=== PATIENT | female | born 2000 | race Caucasian/White ===

== ENCOUNTER 2024-09-09 20:58 | Emergency (ER) | payer MEDICAID, SELFPAY ==
[2024-09-09 21:33] VITALS: BP 135/80; PULSE 89; RESP 18; TEMP 36.4; O2SAT 99
--- NOTE | 2024-09-09 21:36 | EDNOTE_ITS ---
<Statement entered by Tesha Rodriguez MD - 09/16/24 17:50> As co-signing physician, I was present and available for consult prn. I concur with the plan and care as documented by the midlevel provider. 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 Patient reports recently had tetanus vaccine in May. Mode of arrival: ambulatory Limitations: no limitations Related Data Previous Rx's ?Medication ?Instructions ?Recorded hydrocodone 5 mg-acetaminophen 325 1 tab PO BID PRN pain #6 tabs 10/08/23 mg tablet ibuprofen 600 mg tablet 600 mg PO Q6H #30 tabs 10/08/23 Allergies Allergy/AdvReac Type Severity Reaction Status Date / Time No Known Allergies Allergy Verified 07/22/23 18:01 Review of Systems Review of Systems Systems Reviewed: All systems reviewed, normal except as documented Constitutional Constitutional: Reports system reviewed and no additional complaints, except as documented, Denies body ache(s), Denies chills and Denies fever(s) Eyes Eyes: Reports system reviewed and no additional complaints, except as documented and Denies change in vision ENT Ears, Nose, Mouth, and Throat: Reports system reviewed and no additional complaints, except as documented, Denies disequilibrium, Denies dizziness, Denies sore throat and Denies vertigo Cardiovascular Cardiovascular: Reports system reviewed and no additional complaints, except as documented, Denies chest pain and Denies dyspnea Respiratory Respiratory: Reports system reviewed and no additional complaints, except as documented, Denies chest congestion, Denies cough and Denies dyspnea Gastrointestinal Gastrointestinal: Reports system reviewed and no additional complaints, except as documented, Denies abdominal pain, Denies nausea and Denies vomiting Musculoskeletal Musculoskeletal: Reports system reviewed and no additional complaints, except as documented, Denies abnormal gait and Denies arthralgias Integumentary/Breasts Skin/Breast: Reports system reviewed and no additional complaints, except as documented, Denies erythema, Denies rash and Reports wounds (Laceration) Neurologic Neurologic: Reports system reviewed and no additional complaints, except as documented, Denies abnormal gait, Denies disequilibrium, Denies dizziness and Denies vertigo Past Medical History Past Medical History CARDIAC: Negative Cardiac Disorders or Congestive Heart Failure RESPIRATORY: Positive Asthma; Negative Chronic Obstructive Pulmonary Disease (COPD) GENITOURINARY: Negative Renal Disease ENDOCRINE: Negative Diabetes Mellitus Type 1 or Diabetes Mellitus Type 2 HEMATOLOGIC: Negative Sickle Cell Disease PSYCHO/SOCIAL: Positive Depression and Self-Mutilation Social History SMOKING STATUS: Current some day smoker ED Exam General Limitations: Present no limitations General appearance: Present alert and in no apparent distress Head Head exam: Present atraumatic Eye Eye exam: Present normal appearance, PERRL and EOMI ENT ENT exam: Present normal exam, normal oropharynx and mucous membranes moist Neck Neck exam: Present normal inspection, full ROM and trachea midline Chest Chest inspection: Present normal inspection and symmetric chest wall rise Respiratory Respiratory exam: Present normal lung sounds bilaterally Cardiovascular Cardiovascular exam: Present regular rate, normal rhythm and normal heart sounds Abdominal Exam Abdominal exam: Present soft and normal bowel sounds Extremities Exam Extremities exam: Present normal inspection and full ROM Expanded Upper Extremity Exam Hand L/R front image: 2 1. laceration (Small approximate 1 cm linear laceration) Back Exam Back exam: Present normal inspection and full ROM Neurological Exam Neurological exam: Present alert, oriented X3 and CN II-XII intact Psychiatric Psychiatric exam: Present normal affect and normal mood Skin Skin exam: Present warm, dry and normal color Course Quality Measures none Orders Category Date Time Status Set Up Suture Tray STAT Care 09/09/24 21:36 Active Wound Care [Wound Care] NOW Care 09/09/24 21:36 Active Lidocaine 1% 20 ml [Xylocaine 1% 20 ML] Med 09/09/24 21:36 Discontinued 20 ml INFL X1 ONE Vital Signs Vital signs: Vital Signs Temperature 97.6 F 09/09/24 21:33 Pulse Rate 89 09/09/24 21:33 Respiratory Rate 18 09/09/24 21:33 Blood Pressure 135/80 H 09/09/24 21:33 Pulse Oximetry (%) 99 09/09/24 21:33 Oxygen Delivery Method Room Air 09/09/24 21:33 99% room air within normal limits Procedures -ED Laceration Laceration 1: Site: hand Side (If applicable): right Size (cm): 1 Description: linear Depth: simple, single layer Local Anesthetic: lidocaine 1% Amount of anesthesia used (mL): 1 Pre-repair: wound explored and irrigated extensively Skin layer closed with: nylon Size (cm): 5-0 Number of sutures: 3 Technique: simple, interrupted Wound / Laceration MDM Narrative MDM Narrative:: 24-year-old female presents emergency department complaining of laceration to right tip of third digit that occurred while using 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 Patient reports recently had tetanus vaccine in May. Right third digit cleansed with normal saline and Betadine. Wound approximated with 3 simple interrupted sutures using 5-0 Ethilon and 1 mL of 1% lidocaine. Patient tolerated well. Patient affected digit is neurovascularly intact. Discharged and instructed to return to emergency department follow-up with primary care provider in 7 to 10 days for suture removal. Patient data External records reviewed:: [facility] previous records Clinical information provided by:: patient Social determinants that could affect healthcare access:: none Patient has the following chronic illnesses:: N/A How is presenting disease/condition affected by chronic disease/condition?: no chronic disease Evaluation data The following diagnostics were reviewed and interpreted by me:: other (specify) (N/A) Lab and/or radiology exams considered but not ordered:: N/A Interpretation Summary: N/A Medications / Prescriptions Medications or Prescriptions considered but not ordered:: Ordered Medication administrations:: Medication Administration History Discontinued Medications Lidocaine HCl (Lidocaine Hcl 1% 20 Ml Vial) 20 ml INFL X1 ONE Stop: 09/09/24 21:37 Last Admin: 09/09/24 21:48 Dose: 20 ml Documented By: Given Consultations Consultation(s) initiated? (list below): No Diagnosis Wound Differential Diagnosis: laceration Most likely diagnosis given after review of the tests above:: Laceration of finger Admission Indicated Admission indicated?: not indicated Admission Request Was there a request for admission?: No Disposition Plan Disposition Plan: Discharge Discharge Attestation Discharge Attestation: The patient and all family members were given an opportunity to ask questions and understood the discharge instructions. Discharge instructions specifically effects, indications for sooner follow up or return to the emergency department, and the expected course of current diagnosis. Patient condition: Stable Discharge Plan Plan Patient Disposition: HOME (Self Care) Disposition Comment: Stable Prescriptions/Referrals Prescriptions/Med Rec: No Action hydrocodone-acetaminophen 5-325 mg tablet 1 tab PO BID MDD 10 PRN (Reason: pain) Qty: 6 0RF ibuprofen 600 mg tablet 600 mg PO Q6H Qty: 30 0RF Problem List Clinical Impression: Finger laceration Patient/Caregiver Discharge Instructions Discharge Activity: activity as tolerated Education Materials: ED Laceration: All Closures Additional Instructions: Keep dressing for the first 24 hours until no more bleeding. May wash with warm water and soap. Keep clean and dry and open to air after 24 hours. Return to emergency department or primary provider's office in 7 to 10 days for suture removal. Return to emergency department for any signs of infection or worsening symptoms Print Language: Cambodian Stand Alone Forms: [employer]ena Award Info., Work/School Release, Patient Portal Info Letter PA/POSTMASTER Supervising Physician PA/POSTMASTER Supervising Physician: Dr. Rodriguez
[2024-09-09] MEDS: LIDOCAINE HCL 1% 20 ML VIAL INFL (21:48)
== END 2024-09-09 23:42 | disposition home or self-care (01) ==
LOC: SERX 23:21
PROVIDERS: Emergency Provider Emergency Medicine
DX: S61.212A Laceration without foreign body of right middle finger without damage to nail, initial encounter (principal); W29.0XXA Contact with powered kitchen appliance, initial encounter; Y93.G9 Activity, other involving cooking and grilling
CPT/HCPCS: 12001; 99283; J3490

== ENCOUNTER 2024-11-02 22:06 | Emergency (ER) | payer MEDICAID, SELFPAY ==
[2024-11-02 22:07] VITALS: BMI 25.6
[2024-11-02 22:42] VITALS: BP 113/68; PULSE 79; RESP 18; TEMP 36.8; O2SAT 98
--- NOTE | 2024-11-02 22:46 | PD.EDRME ---
Rapid Medical Screening Exam RME Arrival date/time: 11/02/24 22:06 24 yo f present to ED for c/o of flu like sx for 2 days I have greeted and performed a focused initial assessment of this patient. A comprehensive ED assessment and evaluation of the patient, analysis of all test results, and completion of the medical decision making process will be conducted by additional ED providers. Chief Complaint: Flu Like Symptoms Time Seen by Provider: 11/02/24 22:08 Vital signs: Vital Signs Temperature 98.2 F 11/02/24 22:42 Pulse Rate 79 11/02/24 22:42 Respiratory Rate 18 11/02/24 22:42 Blood Pressure 113/68 11/02/24 22:42 Pulse Oximetry (%) 98 11/02/24 22:42 Oxygen Delivery Method Room Air 11/02/24 22:42
[2024-11-02] MEDS: KETOROLAC INJ 60 MG/2 ML VIAL 30 MG IM (22:53)
[2024-11-02] MEDS: ONDANSETRON INJ 2 MG/ML INJ 2 ML 4 MG IM (22:54)
[2024-11-02 23:23] LABS: Basophils # (Auto) 0.1 Thou/mm3 (0.0-0.2); Basophils % (Auto) 1 % (0-2.5); Eosinophils % (Auto) 1 % (0-10); Hematocrit 43.2 % (36.0-46.0); Hemoglobin 14.9 g/dL (12.0-16.0); Immature Granulocytes % (Auto) 0 % (0-0); Immature Granulocytes Auto 0.01 Thou/mm3 (0.00-0.00); Lymphocytes # (Auto) 0.2 Thou/mm3 (1.0-4.8); Lymphocytes % (Auto) 4 % (10-50); Mean Corpuscular HGB Conc 34.5 g/dl (31.0-37.0); Mean Corpuscular Hemoglobin 30.8 pg (25.0-35.0); Mean Corpuscular Volume 89 fL (80-100); Monocytes # (Auto) 0.5 Thou/mm3 (0.0-0.8); Monocytes % (Auto) 10 % (0-12); Neutrophils # (Auto) 3.7 Thou/mm3 (1.8-7.7); Neutrophils % (Auto) 84 % (37-80); Nucleated Red Blood Cell % 0 /100 WBC (0); Platelet Count 213 Thou/mm3 (140-440); RDW Standard Deviation 39.7 fL (36.4-46.3); Red Blood Count 4.84 Miln/mm3 (4.00-5.20); White Blood Count 4.5 Thou/mm3 (3.6-11.0)
[2024-11-02 23:32] LABS: Collection Type, Urine Voided; WBC,Urine 0 /hpf (0-5)
[2024-11-02 23:38] LABS: Bacteria,Urine Rare; Bilirubin,Urine Negative (Negative); Blood,Urine 1+ (Negative); Clarity,Urine Clear (Clear/Hazy); Color,Urine Yellow (Lt Yel-Yel); Glucose, Urine Negative (Negative); Ketones,Urine 1+ (Negative); Leukocyte Esterase,Urine Negative (Negative); Nitrite,Urine Negative (Negative); PH,Urine 8.5 (5.0-7.0); Protein,Urine 1+ (Neg - Trace); RBC,Urine 50 /hpf (0-3); Squamous Epithelial Cell,Urine 13 /hpf (0-5); Urobilinogen,Urine Negative mg/dL (0.0-1.0)
[2024-11-02 23:41] LABS: Alanine Aminotransferase 16 U/L (10-49); Albumin, Serum 4.8 gm/dL (3.5-5.0); Albumin/Globulin Ratio 1.6 (1.2-2.2); Alkaline Phosphatase 66 U/L (46-116); Anion Gap 13 (7-16); Aspartate Amino Transferase 29 U/L (0-34); BUN/Creatinine Ratio 11 Ratio (12-20); Bilirubin,Total 0.5 mg/dL (0.3-1.2); Blood Urea Nitrogen 9 mg/dL (9-23); Calcium 9.9 mg/dL (8.3-10.6); Calcium (Corrected) 9.9 mg/dL (8.5-10.1); Carbon Dioxide 22.8 mMol/L (20.0-31.0); Chloride 103 mMol/L (98-107); Creatinine (Component) 0.8 mg/dL (0.6-1.3); Estimated Creatinine Clearance 96.6 mL/min (>60); Glucose 92 mg/dL (74-106); Lipase 26 U/L (12-53); Osmolality,Calculated 276 (275-295); Potassium 3.8 mMol/L (3.4-5.1); Sodium 139 mMol/L (136-145); Total Protein 7.8 gm/dL (5.7-8.2); eGFR > 60 See Note
[2024-11-02 23:46] LABS: HCG,Qualitative Serum Negative
[2024-11-02 23:51] LABS: Strep A Rapid Negative (Negative)
--- NOTE | 2024-11-02 23:57 | EDNOTE_ITS ---
<Statement entered by Tesha Rodriguez MD - 11/03/24 03:21> As co-signing physician, I was present and available for consult prn. I concur with the plan and care as documented by the midlevel provider. Upper Respiratory Inf. RME/HPI General Chief Complaint: Flu Like Symptoms Stated Complaint: DX W/FLU TODAY RETURN W/SYMPTOMS WORSENING Time Seen by Provider: 11/02/24 22:08 Arrival date/time: 11/02/24 22:06 24 year old female present to emergency room with c/o of flu like symptoms. seen at local clinic diagnosed with flu. LOCATION: vomiting, bodyaches SEVERITY: Symptoms are described as being severe with limitations on activities of daily living CONTEXT: The patient is unable to identify any inciting events. DURATION/TIMING: The symptoms started approximately 1 day ago and have been constant since and have been progressive getting worse. ASSOCIATED SYMPTOMS: n/v/d, cough, bodyaches fever, chills MODIFYING FACTORS: The patient is unable to identify any alleviating or aggravating symptoms. PERTINENT ROS: no pleuritic pain, no ripping or tearing sensations, denies any lower extremity edema and no unilateral swelling, no chest pain/shortness of breath no dizziness/headache no rash no loc/syncope episode no abd/back pain no dsyuria,urgency,frequency REVIEW OF SYSTEMS: See History of Present Illness - with the exception of those mentioned in the history of present illness, all other systems reviewed and reported as negative GENERAL: In general the patient is awake, interactive, in an emergency department gurney. HEAD/EYES/EARS/NOSE/THROAT: normo-cephalic, atraumatic, mucus membranes are moist, anicteric, palpebral conjunctiva is pink, trachea is midline. CARDIOVASCULAR: regular rate and regular rhythm, no murmurs, heart sounds are not distant, strong pulses in all four extremities that are equal and symmetric bilateral upper and lower extremities, normal capillary refill. CHEST/PULMONARY: normal chest rise and fall, good air movement, clear to auscultation bilaterally, normal inspiratory to expiratory ratios without evidence of respiratory distress. NECK: No midline/Paraspinal tenderness, no step off ROM/Strenght intact No Kernig and bruzinski sign. No trauma ABDOMEN: soft, not tender, no masses appreciated BACK: normal range of motion without pain. NEUROLOGICAL: cranio-facial features are symmetric, moves all four extremities equally without obvious limitations or weakness. EXTREMITY: no tenderness to palpation over the long bones or large joints of the bilateral upper and lower extremities, no joint swelling, no joint erythema, no signs of trauma, no unilateral leg swelling and no peripheral edema. SKIN: warm, dry, well-perfused, no jaundice, no rash, no telangiectasias or petechia. PSYCH: calm, cooperative, no evidence of psychosis or agitation RME / HPI RME / HPI Narrative: 11/02/24 22:06 24 yo f present to ED for c/o of flu like sx for 2 days I have greeted and performed a focused initial assessment of this patient. A comprehensive ED assessment and evaluation of the patient, analysis of all test results, and completion of the medical decision making process will be conducted by additional ED providers. Related Data Previous Rx's ?Medication ?Instructions ?Recorded hydrocodone 5 mg-acetaminophen 325 1 tab PO BID PRN pain #6 tabs 10/08/23 mg tablet ibuprofen 600 mg tablet 600 mg PO Q6H #30 tabs 10/08/23 Allergies Allergy/AdvReac Type Severity Reaction Status Date / Time No Known Allergies Allergy Verified 11/02/24 22:11 Course Course Course Narrative: Patient presenting with influenza like symptoms.? Obtained influenza A/B screen, which revealed positive influenza.? The following were considered in the patient's differential diagnosis but was not deemed to be consistent with patient's history of present illness and/or physical examination; meningitis, pharyngitis, otitis media, pneumonia, urinary tract infection, peritonsillar abscess, retropharyngeal abscess.? As patient does not present with any signs/symptoms of pneumonia or other complications, deferred CXR or further labwork at this time. Educated patient on diagnosis and natural course of influenza.? Supportive care and preventive measures were discussed.? Continue fluid hydration. Follow up with primary physician in 3-5 days if symptoms continue or new problems arise. Return if having persistent high fever, altered mental status, shortness of breath, uncontrolled vomiting, or other concerns.? ? cbc/cmp, urine, strep negative/wnl? + influenza? Impression:?? Influenza Plan:? take tamiflu/zofran as prescribed by your previous provider? Advised patient on support therapies, including rest, advancement of fluids as tolerated, thorough handwashing w/ soap and H2O, taking OTC ibuprofen or acetaminophen as directed, OTC expectorant/antitussive/decongestants as directed. Advised patient to refrain from visiting work, school, or daycares or visiting women, elderly, or those w/ chronic illnesses. Advised patient to return with new or worsening symptoms. Quality Measures none Orders Category Date Time Status Bedside Influenza A&B Antigen Test NOW Care 11/02/24 22:45 Active CBC Stat Lab 11/02/24 23:05 Completed CMP [Comprehensive Metabolic Panel] Stat Lab 11/02/24 23:05 Completed HCG,Qualitative Serum Stat Lab 11/02/24 23:05 Completed Lipase Stat Lab 11/02/24 23:05 Completed Strep A Rapid Stat Lab 11/02/24 22:58 Completed UA [Urinalysis] Stat Lab 11/02/24 23:27 Completed Ketorolac Inj [Toradol Inj] Med 11/02/24 22:45 Discontinued 30 mg IM X1 ONE Ondansetron Inj [Zofran Inj] Med 11/02/24 22:45 Discontinued 4 mg IM X1 ONE Vital Signs Vital signs: Vital Signs Temperature 98.2 F 11/02/24 22:42 Pulse Rate 79 11/02/24 22:42 Respiratory Rate 18 11/02/24 22:42 Blood Pressure 113/68 11/02/24 22:42 Pulse Oximetry (%) 98 11/02/24 22:42 Oxygen Delivery Method Room Air 11/02/24 22:42 Upper Respiratory Infection Patient data External records reviewed:: None Clinical information provided by:: patient Social determinants that could affect healthcare access:: none Patient has the following chronic illnesses:: n/a How is presenting disease/condition affected by chronic disease/condition?: no chronic disease Evaluation data The following diagnostics were reviewed and interpreted by me:: lab results Lab and/or radiology exams considered but not ordered:: na Interpretation Summary: + flu -strep, cbc/cmp wnl urine no infection hcg negative Medications / Prescriptions Medications or Prescriptions considered but not ordered:: n/a Medication administrations:: Medication Administration History Discontinued Medications Ketorolac Tromethamine (Ketorolac Inj 60 Mg/2 Ml Vial) 30 mg IM X1 ONE Stop: 11/02/24 22:46 Last Admin: 11/02/24 22:53 Dose: 30 mg Documented By: Ondansetron HCl (Ondansetron Inj 2 Mg/Ml Inj 2 Ml) 4 mg IM X1 ONE; Protocol Stop: 11/02/24 22:46 Last Admin: 11/02/24 22:54 Dose: 4 mg Documented By: as stated above Consultations Consultation(s) initiated? (list below): No Diagnosis Upper Respiratory Differential Diagnosis: upper respiratory infection, viral infection, bronchitis, influenza, pharyngitis and other (UTI, dehydration ) Most likely diagnosis given after review of the tests above:: flu Admission Indicated Admission indicated?: not indicated Admission Request Was there a request for admission?: No Disposition Plan Disposition Plan: Discharge Discharge Attestation Discharge Attestation: The patient and all family members were given an opportunity to ask questions and understood the discharge instructions. Discharge instructions specifically effects, indications for sooner follow up or return to the emergency department, and the expected course of current diagnosis. Patient condition: Stable Discharge Plan Plan Patient Disposition: HOME (Self Care) Health Concerns: Follow with PMD as directed Take tylenol or motrin as need Return to ED if sx worsen Prescriptions/Referrals Prescriptions/Med Rec: No Action hydrocodone-acetaminophen 5-325 mg tablet 1 tab PO BID MDD 10 PRN (Reason: pain) Qty: 6 0RF ibuprofen 600 mg tablet 600 mg PO Q6H Qty: 30 0RF Referrals: Jose Sullivan PA-C [Primary Care Provider] - In 1 week Problem List Clinical Impression: Influenza Patient/Caregiver Discharge Instructions Education Materials: The Flu (Influenza) Print Language: Cypriot Stand Alone Forms: [employer]ena Award Info., Patient Portal Info Letter
== END 2024-11-03 01:30 | disposition home or self-care (01) ==
PROVIDERS: Physician Assistant; Emergency Provider Emergency Medicine; PCP Physician Assistant Medical
DX: J11.1 Influenza due to unidentified influenza virus with other respiratory manifestations (principal)
CPT/HCPCS: 36415; 80053; 81001; 83690; 84703; 85025; 87651; 96372; 99283; J1885; J2405

== ENCOUNTER 2024-11-06 00:05 | Emergency (ER) | payer MEDICAID, SELFPAY ==
[2024-11-06 00:06] VITALS: BMI 26.5
[2024-11-06 00:12] VITALS: BP 119/68; PULSE 100; RESP 18; TEMP 37.1; O2SAT 98
--- NOTE | 2024-11-06 00:24 | EDNOTE_ITS ---
Upper Respiratory Inf. RME/HPI General Chief Complaint: Flu Like Symptoms Stated Complaint: DIFFIUCLTY BREATHING, PANIC ATTACK Time Seen by Provider: 11/06/24 00:18 Arrival date/time: 11/06/24 00:05 24F with history of asthma and infrequent panic attacks presents to ED with 2 days of SOB and 1 hour of panic attack. Patient denies SI/HI. Patient was here several days ago for this with normal work-up except for positive influenza test. Limitations: no limitations Related Data Previous Rx's ?Medication ?Instructions ?Recorded hydrocodone 5 mg-acetaminophen 325 1 tab PO BID PRN pa in #6 tabs 10/08/23 mg tablet ibuprofen 600 mg tablet 600 mg PO Q6H #30 tabs 10/08 prednisone 20 mg tablet 20 mg PO BID 3 days #6 tabs 11/06/24 Allergies Allergy/AdvReac Type Severity Reaction Status Date / Time No Known Allergies Allergy Verified 11/02/24 22:11 Review of Systems Review of Systems Systems Reviewed: All systems reviewed, normal except as documented Constitutional Constitutional: Reports system reviewed and no additional complaints, except as documented, Denies fever(s) and Denies headache(s) ENT Ears, Nose, Mouth, and Throat: Denies disequilibrium and Denies headache(s) Cardiovascular Cardiovascular: Reports system reviewed and no additional complaints, except as documented, Denies chest pain and Reports dyspnea Respiratory Respiratory: Reports system reviewed and no additional complaints, except as documented, Reports as per HPI, Denies cough and Reports dyspnea Gastrointestinal Gastrointestinal: Reports system reviewed and no additional complaints, except as documented, Denies abdominal pain, Denies nausea and Denies vomiting Neurologic Neurologic: Reports system reviewed and no additional complaints, except as documented, Denies confusion, Denies disequilibrium and Denies headache(s) Psychiatric Psychiatric: Reports as per HPI, Denies confusion and Reports panic attacks Past Medical History Past Medical History CARDIAC: Negative Cardiac Disorders or Congestive Heart Failure RESPIRATORY: Positive Asthma; Negative Chronic Obstructive Pulmonary Disease (COPD) GENITOURINARY: Negative Renal Disease ENDOCRINE: Negative Diabetes Mellitus Type 1 or Diabetes Mellitus Type 2 HEMATOLOGIC: Negative Sickle Cell Disease PSYCHO/SOCIAL: Positive Depression and Self-Mutilation Social History SMOKING STATUS: Never smoker ED Exam General Limitations: Present no limitations General appearance: Present alert and in no apparent distress Head Head exam: Present atraumatic Eye Eye exam: Present normal appearance, PERRL and EOMI ENT ENT exam: Present normal exam, normal oropharynx and mucous membranes moist Neck Neck exam: Present normal inspection, full ROM and trachea midline Chest Chest inspection: Present normal inspection and symmetric chest wall rise Respiratory Respiratory exam: Present wheezes Cardiovascular Cardiovascular exam: Present regular rate, normal rhythm and normal heart sounds Abdominal Exam Abdominal exam: Present soft and normal bowel sounds Extremities Exam Extremities exam: Present normal inspection and full ROM Back Exam Back exam: Present normal inspection and full ROM Neurological Exam Neurological exam: Present alert, oriented X3 and CN II-XII intact Psychiatric Psychiatric exam: Present normal affect and normal mood Skin Skin exam: Present warm, dry, intact and normal color Course Quality Measures none Orders Category Date Time Status Albuterol/Ipratr Rt Louann [Duoneb Rt Louann] Med 11/06/24 00:18 Discontinued 3 ml INH X1 ONE Dexamethasone Inj [Decadron Inj] Med 11/06/24 00:18 Discontinued 10 mg PO X1 ONE Diazepam [Valium] Med 11/06/24 00:18 Discontinued 10 mg PO X1 ONE Vital Signs Vital signs: Vital Signs Temperature 98.8 F 11/06/24 00:12 Pulse Rate 100 11/06/24 00:12 Respiratory Rate 18 11/06/24 00:12 Blood Pressure 119/68 11/06/24 00:12 Pulse Oximetry (%) 98 11/06/24 00:12 Oxygen Delivery Method Room Air 11/06/24 00:12 O2 at 98% on RA and WNLs Upper Respiratory Infection MDM Narrative MDM Narrative:: 24F with history of asthma and infrequent panic attacks presents to ED with 2 days of SOB and 1 hour of panic attack. Patient denies SI/HI. Patient was here several days ago for this with normal work-up except for positive influenza test. Physical exam reveals some wheezing in lungs. Patient is afebrile, alert, but very anxious. Steroids/breathing tx relieved wheezing. Valium relieved panic attack. Patient data External records reviewed:: [facility] previous records Clinical information provided by:: patient Social determinants that could affect healthcare access:: mental health Patient has the following chronic illnesses:: panic attack and asthma How is presenting disease/condition affected by chronic disease/condition?: exacerbated by Evaluation data The following diagnostics were reviewed and interpreted by me:: other (specify) (none) Lab and/or radiology exams considered but not ordered:: not ordered Interpretation Summary: n/a Medications / Prescriptions Medications or Prescriptions considered but not ordered:: ordered Medication administrations:: Medication Administration History Discontinued Medications Albuterol/Ipratropium (Albuterol/Ipratropium (Duoneb) Rt Louann 3 Ml Nebu) 3 ml INH X1 ONE Stop: 11/06/24 00:19 Last Admin: 11/06/24 00:42 Dose: 3 ml Documented By: AH Dexamethasone Sodium Phosphate (Dexamethasone Sod Phos Inj 10 Mg/Ml Vial) 10 mg PO X1 ONE Stop: 11/06/24 00:19 Last Admin: 11/06/24 00:25 Dose: 10 mg Documented By: EO Diazepam (Diazepam 5 Mg Tablet) 10 mg PO X1 ONE Stop: 11/06/24 00:19 Last Admin: 11/06/24 00:26 Dose: 10 mg Documented By: EO above Consultations Consultation(s) initiated? (list below): No Diagnosis Upper Respiratory Differential Diagnosis: upper respiratory infection, croup, otitis media, sinusitis, viral infection, bronchitis, influenza, pharyngitis and other (panic attack and asthma exacerbation) Most likely diagnosis given after review of the tests above:: panic attack, influenza and asthma exacerbation Admission Indicated Admission indicated?: not indicated Admission Request Was there a request for admission?: No Disposition Plan Disposition Plan: Discharge Discharge Attestation Discharge Attestation: The patient and all family members were given an opportunity to ask questions and understood the discharge instructions. Discharge instructions specifically effects, indications for sooner follow up or return to the emergency department, and the expected course of current diagnosis. Patient condition: Stable Discharge Plan Plan Patient Disposition: HOME (Self Care) Disposition Comment: Stable Prescriptions/Referrals Prescriptions/Med Rec: New prednisone 20 mg tablet 20 mg PO BID 3 Days Qty: 6 0RF No Action hydrocodone-acetaminophen 5-325 mg tablet 1 tab PO BID MDD 10 PRN (Reason: pain) Qty: 6 0RF ibuprofen 600 mg tablet 600 mg PO Q6H Qty: 30 0RF Referrals: Jose Sullivan PA-C [Primary Care Provider] - In 1 week Problem List Clinical Impression: Panic attack, Influenza, Asthma exacerbation Patient/Caregiver Discharge Instructions Education Materials: Panic Disorder Tx Additional Instructions: Please follow-up with PCP within 24-48 hours and return immediately if symptoms worsen. Print Language: Colombian Stand Alone Forms: Work/School Release SKYLER/DATA SCIENCE AND IOT MANAGER Supervising Physician PA/DATA SCIENCE [employer]OT MANAGER Supervising Physician: Dr. Wang
[2024-11-06] MEDS: DEXAMETHASONE SOD PHOS INJ 10 MG/ML VIAL PO (00:25)
[2024-11-06] MEDS: DIAZEPAM 5 MG TABLET 10 MG PO (00:26)
[2024-11-06] MEDS: ALBUTEROL/IPRATROPIUM (Duoneb) RT SOL 3 ML NEBU INH (00:42)
[2024-11-06 00:56] VITALS: PULSE 96; RESP 19; O2SAT 99
== END 2024-11-06 02:55 | disposition home or self-care (01) ==
PROVIDERS: Emergency Provider Emergency Medicine; PCP Physician Assistant Medical
DX: J45.901 Unspecified asthma with (acute) exacerbation (principal); J11.1 Influenza due to unidentified influenza virus with other respiratory manifestations; F41.0 Panic disorder [episodic paroxysmal anxiety]
CPT/HCPCS: 94640; 99283; A9270; J1100

== ENCOUNTER 2025-01-07 14:48 | Emergency (ER) | payer OTHER, SELFPAY ==
[2025-01-07 14:49] VITALS: BMI 25.6
[2025-01-07 15:05] VITALS: BP 125/75; PULSE 79; RESP 16; TEMP 36.8; O2SAT 99
--- NOTE | 2025-01-07 15:10 | EDNOTE_ITS ---
Lower Extremity Injury RME/HPI General Chief Complaint: Burn/Smoke Inhalation Stated Complaint: BURN ON R) FOOT FROM OIL X 1 WEEK, HURTING WORSE Source: patient Arrival date/time: 01/07/25 14:48 24-year-old female with no known medical history presents to the emergency room with a chief complaint of a burn to the right foot that occurred 1 week ago when she dropped some oil on it. Mode of arrival: ambulatory Limitations: no limitations Related Data Previous Rx's ?Medication ?Instructions ?Recorded hydrocodone 5 mg-acetaminophen 325 1 tab PO BID PRN pa in #6 tabs 10/08/23 mg tablet ibuprofen 600 mg tablet 600 mg PO Q6H #30 tabs 10/08 bacitracin 500 unit/gram topical 1 applic topical TID #28 grams 01/07/25 ointment Allergies Allergy/AdvReac Type Severity Reaction Status Date / Time No Known Allergies Allergy Verified 01/07/25 14:51 Review of Systems Review of Systems Systems Reviewed: All systems reviewed, normal except as documented Constitutional Constitutional: Reports system reviewed and no additional complaints, except as documented, Denies fatigue, Denies fever(s), Denies headache(s) and Denies weakness Eyes Eyes: Reports system reviewed and no additional complaints, except as documented, Denies blurry vision and Denies change in vision ENT Ears, Nose, Mouth, and Throat: Reports system reviewed and no additional complaints, except as documented, Denies otalgia, Denies headache(s), Denies nasal congestion, Denies throat swelling and Denies vertigo Cardiovascular Cardiovascular: Reports system reviewed and no additional complaints, except as documented, Denies chest pain, Denies dyspnea and Denies dyspnea on exertion Respiratory Respiratory: Reports system reviewed and no additional complaints, except as documented, Denies chest congestion, Denies cough, Denies dyspnea, Denies dyspnea on exertion and Denies wheezing Gastrointestinal Gastrointestinal: Reports system reviewed and no additional complaints, except as documented, Denies abdominal pain, Denies cramping, Denies nausea and Denies vomiting Genitourinary Genitourinary: Reports system reviewed and no additional complaints, except as documented Musculoskeletal Musculoskeletal: Reports system reviewed and no additional complaints, except as documented and Denies back pain Integumentary/Breasts Skin/Breast: Reports system reviewed and no additional complaints, except as documented and Reports wounds Neurologic Neurologic: Reports system reviewed and no additional complaints, except as documented, Denies confusion, Denies headache(s), Denies lack of coordination, Denies vertigo and Denies weakness Psychiatric Psychiatric: Reports system reviewed and no additional complaints, except as documented, Denies anxiety, Denies confusion, Denies depression, Denies paranoia, Denies suicidal ideation and Denies tactile hallucinations Endocrine Endocrine: Reports system reviewed and no additional complaints, except as documented and Denies fatigue Hematologic/Lymphatic Hematologic/Lymphatic: Reports system reviewed and no additional complaints, except as documented and Denies lymphadenopathy Allergic/Immunologic Allergic/Immunologic: Reports system reviewed and no additional complaints, except as documented, Denies throat swelling, Denies urticaria and Denies wheezing Past Medical History Past Medical History CARDIAC: Negative Cardiac Disorders or Congestive Heart Failure RESPIRATORY: Positive Asthma; Negative Chronic Obstructive Pulmonary Disease (COPD) GENITOURINARY: Negative Renal Disease ENDOCRINE: Negative Diabetes Mellitus Type 1 or Diabetes Mellitus Type 2 HEMATOLOGIC: Negative Sickle Cell Disease PSYCHO/SOCIAL: Positive Depression and Self-Mutilation Social History SMOKING STATUS: Current every day smoker ED Exam General Limitations: Present no limitations General appearance: Present alert and in no apparent distress Head Head exam: Present atraumatic Eye Eye exam: Present normal appearance, PERRL and EOMI ENT ENT exam: Present normal exam, normal oropharynx and mucous membranes moist Neck Neck exam: Present normal inspection, full ROM and trachea midline Chest Chest inspection: Present normal inspection and symmetric chest wall rise Respiratory Respiratory exam: Present normal lung sounds bilaterally Cardiovascular Cardiovascular exam: Present regular rate, normal rhythm and normal heart sounds Abdominal Exam Abdominal exam: Present soft and normal bowel sounds Extremities Exam Extremities exam: Present normal inspection and full ROM Expanded Lower Extremity Exam Hip/Pelvis exam: Present normal inspection Upper leg exam: Present normal inspection Knee exam: Present normal inspection Lower leg exam: Present normal inspection Ankle exam: Present normal inspection Foot/toe exam: Present erythema and other Top foot image: 2 1. Thermal burn to the right foot. The area appears to be healing appropriately it is still erythemic but there is no blisters. Back Exam Back exam: Present normal inspection and full ROM Neurological Exam Neurological exam: Present alert, oriented X3 and CN II-XII intact Psychiatric Psychiatric exam: Present normal affect and normal mood Skin Skin exam: Present warm, dry, intact and normal color Course Quality Measures none Vital Signs Vital signs: Vital Signs Temperature 98.2 F 01/07/25 15:05 Pulse Rate 79 04/01/25 15:05 Respiratory Rate 16 01/07/25 15:05 Blood Pressure 125/75 01/07/25 15:05 Pulse Oximetry (%) 99 01/07/25 15:05 Oxygen Delivery Method Room Air 01/07/25 15:05 Extremity Injury, Lower MDM Narrative MDM Narrative:: 24-year-old female with no known medical history presents to the emergency room with a chief complaint of a burn to the right foot that occurred 1 week ago when she dropped some oil on it. Patient is hemodynamically stable and in no apparent distress. Physical examination shows a thermal burn to the right foot. The patient states this occurred 1 week ago. The area right now is erythemic but there is no blisters in the area appears to be healing appropriately. There are no signs or symptoms of any infection. Bacitracin ointment was placed Xeroform dressing was placed over the and the wound was cleaned and wrapped. Patient was discharged and educated to follow-up with primary care provider in the next 24 to 48 hours and return to the emergency room for any evidence of worsening signs or symptoms Patient data External records reviewed:: [facility] previous records Clinical information provided by:: patient Social determinants that could affect healthcare access:: none Patient has the following chronic illnesses:: No chronic illness How is presenting disease/condition affected by chronic disease/condition?: no chronic disease Evaluation data The following diagnostics were reviewed and interpreted by me:: lab results and radiology exam(s) Lab and/or radiology exams considered but not ordered:: Labs and radiology exams considered and ordered Interpretation Summary: N/A Medications / Prescriptions Medications or Prescriptions considered but not ordered:: Medication given Medication administrations:: Medication given Consultations Consultation(s) initiated? (list below): No Diagnosis Extremity Injury, Lower Differential Diagnosis: other (Thermal burn/electric burn/cellulitis) Most likely diagnosis given after review of the tests above:: Thermal burn Admission Indicated Admission indicated?: not indicated Admission Request Was there a request for admission?: No Disposition Plan Disposition Plan: Discharge Discharge Attestation Discharge Attestation: The patient and all family members were given an opportunity to ask questions and understood the discharge instructions. Discharge instructions specifically effects, indications for sooner follow up or return to the emergency department, and the expected course of current diagnosis. Patient condition: Stable Discharge Plan Plan Patient Disposition: HOME (Self Care) Disposition Comment: Stable Prescriptions/Referrals Prescriptions/Med Rec: New bacitracin 500 unit/gram ointment 1 applic topical TID Qty: 28 0RF No Action hydrocodone-acetaminophen 5-325 mg tablet 1 tab PO BID MDD 10 PRN (Reason: pain) Qty: 6 0RF ibuprofen 600 mg tablet 600 mg PO Q6H Qty: 30 0RF Problem List Clinical Impression: Thermal burn Patient/Caregiver Discharge Instructions Education Materials: ED BURN Wound Check [No Infection] Additional Instructions: You have a thermal burn to your right foot. This injury occurred 1 week ago and there appears to be healing appropriately. Antibiotic ointment was sent to your pharmacy. Please place it on your wound to help your healing process. For any evidence of worsening signs or symptoms return to the emergency room immediately Print Language: Irish Stand Alone Forms: Dena Award Info., Work/School Release, Patient Portal Info Letter PA/SHERIFF'S SERGEANT Supervising Physician PA/SHERIFF'S SERGEANT Supervising Physician: Dr. Javier
== END 2025-01-07 15:40 | disposition home or self-care (01) ==
LOC: SERX 15:46
PROVIDERS: Emergency Provider Emergency Medicine; PCP Nurse Practitioner
DX: T25.021A Burn of unspecified degree of right foot, initial encounter (principal); X10.2XXA Contact with fats and cooking oils, initial encounter
CPT/HCPCS: 99281

== ENCOUNTER 2025-03-18 18:44 | Emergency (ER) | payer MEDICAID, SELFPAY ==
[2025-03-18 18:44] VITALS: BMI 25.6
[2025-03-18 18:55] VITALS: BP 116/71; PULSE 92; RESP 18; TEMP 36.9; O2SAT 98
--- NOTE | 2025-03-18 19:11 | EDNOTE_ITS ---
<Statement entered by Tesha Rodriguez MD - 03/19/25 18:36> As co-signing physician, I was present and available for consult prn. I concur with the plan and care as documented by the midlevel provider. ED Back Injury Pain RME/HPI General Chief Complaint: Back Pain/Injury Stated Complaint: BACK/NECK/HIP/HEAD PAIN UPON WAKING x 3 DAYS Time Seen by Provider: 03/18/25 19:08 Arrival date/time: 03/18/25 18:44 24F with history of asthma presents to ED with several days of back, neck, R hi p, and head pain w/o fall/trauma. Patient denies hematuria/dysuria, URI symptoms, paresthesia, bowel/bladder incontinence. Provider was seen several months ago and had a Reynaud's phenomenon presentation. Patient improved with steroids. Patient is pending outpatient rheumatology referral. Limitations: no limitations Related Data Previous Rx's ?Medication ?Instructions ?Recorded hydrocodone 5 mg-acetaminophen 325 1 tab PO BID PRN pa in #6 tabs 10/08/23 mg tablet ibuprofen 600 mg tablet 600 mg PO Q6H #30 tabs 10/08 bacitracin 500 unit/gram topical 1 applic topical TID #28 grams 01/07/25 ointment Allergies Allergy/AdvReac Type Severity Reaction Status Date / Time No Known Allergies Allergy Verified 03/18/25 18:46 Review of Systems Review of Systems Systems Reviewed: All systems reviewed, normal except as documented Constitutional Constitutional: Reports system reviewed and no additional complaints, except as documented, Denies fever(s) and Denies headache(s) ENT Ears, Nose, Mouth, and Throat: Denies disequilibrium and Denies headache(s) Cardiovascular Cardiovascular: Reports system reviewed and no additional complaints, except as documented, Denies chest pain and Denies dyspnea Respiratory Respiratory: Reports system reviewed and no additional complaints, except as documented, Denies cough and Denies dyspnea Gastrointestinal Gastrointestinal: Reports system reviewed and no additional complaints, except as documented, Denies abdominal pain, Denies nausea and Denies vomiting Musculoskeletal Musculoskeletal: Reports as per HPI and Reports arthralgias Neurologic Neurologic: Reports system reviewed and no additional complaints, except as documented, Denies confusion, Denies disequilibrium and Denies headache(s) Psychiatric Psychiatric: Denies confusion Past Medical History Past Medical History CARDIAC: Negative Cardiac Disorders or Congestive Heart Failure RESPIRATORY: Positive Asthma; Negative Chronic Obstructive Pulmonary Disease (COPD) GENITOURINARY: Negative Renal Disease ENDOCRINE: Negative Diabetes Mellitus Type 1 or Diabetes Mellitus Type 2 HEMATOLOGIC: Negative Sickle Cell Disease PSYCHO/SOCIAL: Positive Depression and Self-Mutilation Social History SMOKING STATUS: Current every day smoker ED Exam General Limitations: Present no limitations General appearance: Present alert and in no apparent distress Head Head exam: Present atraumatic Eye Eye exam: Present normal appearance, PERRL and EOMI ENT ENT exam: Present normal exam, normal oropharynx and mucous membranes moist Neck Neck exam: Present normal inspection, full ROM and trachea midline Chest Chest inspection: Present normal inspection and symmetric chest wall rise Respiratory Respiratory exam: Present normal lung sounds bilaterally Cardiovascular Cardiovascular exam: Present regular rate, normal rhythm and normal heart sounds Abdominal Exam Abdominal exam: Present soft and normal bowel sounds Extremities Exam Extremities exam: Present normal inspection and full ROM Back Exam Back exam: Present normal inspection and full ROM Neurological Exam Neurological exam: Present alert, oriented X3 and CN II-XII intact Psychiatric Psychiatric exam: Present normal affect and normal mood Skin Skin exam: Present warm, dry, intact and normal color Course Quality Measures none Orders Category Date Time Status Dexamethasone Inj [Decadron Inj] Med 03/18/25 19:09 Discontinued 10 mg PO X1 ONE Metoclopramide [Reglan] Med 03/18/25 19:09 Discontinued 10 mg PO X1 ONE Naproxen [Naprosyn] Med 03/18/25 19:58 Discontinued 500 mg PO X1 ONE Vital Signs Vital signs: Vital Signs Temperature 98.4 F 03/18/25 18:55 Pulse Rate 92 03/18/25 18:55 Respiratory Rate 18 03/18/25 18:55 Blood Pressure 116/71 03/18/25 18:55 Pulse Oximetry (%) 98 03/18/25 18:55 Oxygen Delivery Method Room Air 03/18/25 18:55 O2 at 98% on RA and WNLs Back Pain / Injury MDM Narrative MDM Narrative:: 24F with history of asthma presents to ED with several days of back, neck, R hip, and head pain w/o fall/trauma. Patient denies hematuria/dysuria, URI symptoms, paresthesia, bowel/bladder incontinence. Provider was seen several months ago and had a Reynaud's phenomenon presentation. Patient improved with steroids. Patient is pending outpatient rheumatology referral. Physical exam reveals normal speech and normal gait. No back/neck tenderness. Pain is with ROM, which is intact. Patient is afebrile, calm, and alert. Most likely related to undiagnosed autoimmune conditions. Meds improved symptoms. Patient data External records reviewed:: [facility] previous records Clinical information provided by:: patient Social determinants that could affect healthcare access:: none Patient has the following chronic illnesses:: asthma How is presenting disease/condition affected by chronic disease/condition?: exacerbated by Evaluation data The following diagnostics were reviewed and interpreted by me:: other (specify) (none) Lab and/or radiology exams considered but not ordered:: not ordered Interpretation Summary: n/a Medications / Prescriptions Medications or Prescriptions considered but not ordered:: ordered Medication administrations:: Medication Administration History Discontinued Medications Dexamethasone Sodium Phosphate (Dexamethasone Sod Phos Inj 10 Mg/Ml Vial) 10 mg PO X1 ONE Stop: 03/18/25 19:10 Last Admin: 03/18/25 19:17 Dose: 10 mg Documented By: Metoclopramide HCl (Metoclopramide 5 Mg Tablet) 10 mg PO X1 ONE Stop: 03/18/25 19:10 Last Admin: 03/18/25 19:17 Dose: 10 mg Documented By: Naproxen (Naproxen 250 Mg Tablet) 500 mg PO X1 ONE Stop: 03/18/25 19:59 Last Admin: 03/18/25 20:17 Dose: 500 mg Documented By: above Consultations Consultation(s) initiated? (list below): No Diagnosis Differential diagnosis back pain/injury: lumbar radiculopathy, sciatica, strain of lumbar region, renal colic, pyelonephritis, thoracic back pain, AAA, discitis and other (joint pain) Most likely diagnosis given after review of the tests above:: joint pain Admission Indicated Admission indicated?: not indicated Admission Request Was there a request for admission?: No Disposition Plan Disposition Plan: Discharge Discharge Attestation Discharge Attestation: The patient and all family members were given an opportunity to ask questions and understood the discharge instructions. Discharge instructions specifically effects, indications for sooner follow up or return to the emergency department, and the expected course of current diagnosis. Patient condition: Stable Discharge Plan Plan Patient Disposition: HOME (Self Care) Discharge Disposition comment: Stable Prescriptions/Referrals Prescriptions/Med Rec: No Action hydrocodone-acetaminophen 5-325 mg tablet 1 tab PO BID MDD 10 PRN (Reason: pain) Qty: 6 0RF ibuprofen 600 mg tablet 600 mg PO Q6H Qty: 30 0RF bacitracin 500 unit/gram ointment 1 applic topical TID Qty: 28 0RF Referrals: Jd Simms MD [Primary Care Provider] - In 1 week Problem List Clinical Impression: Joint pain Patient/Caregiver Discharge Instructions Education Materials: ED Arthralgia Additional Instructions: Please follow-up with PCP within 24-48 hours and return immediately if symptoms worsen. Make sure to follow-up with poker in. Print Language: Chinese Stand Alone Forms: Patient Portal Info Letter PA/JEWELRY DRILL OPERATOR Supervising Physician PA/JEWELRY DRILL OPERATOR Supervising Physician: Dr. Rodriguez
[2025-03-18] MEDS: METOCLOPRAMIDE 5 MG TABLET 10 MG PO (19:17)
[2025-03-18] MEDS: DEXAMETHASONE SOD PHOS INJ 10 MG/ML VIAL PO (19:17)
[2025-03-18] MEDS: NAPROXEN 250 MG TABLET 500 MG PO (20:17)
== END 2025-03-18 21:00 | disposition home or self-care (01) ==
PROVIDERS: Emergency Provider Emergency Medicine; PCP Family Medicine
DX: M25.551 Pain in right hip (principal); R51.9 Headache, unspecified; M54.2 Cervicalgia
CPT/HCPCS: 99282; J1100; A9270

== ENCOUNTER 2025-06-23 16:15 | Emergency (ER) | payer MEDICAID, SELFPAY ==
[2025-06-23 16:16] VITALS: BMI 25.6
[2025-06-23 16:24] VITALS: BP 111/73; PULSE 76; RESP 18; TEMP 37.2; O2SAT 97
--- NOTE | 2025-06-23 16:37 | XR_ITS ---
Examination: Thoracic spine 3 views Technique: AP lateral coned lateral upper dorsal spine 3 views Date and time: June 23, 2025, 1730 hrs. Indications: Upper back pain beginning 4 days ago. Findings: Thoracic dextroscoliosis 6 degrees Satisfactory alignment thoracic vertebral bodies on the lateral view. No thoracic fracture or arthritic change Impression: Thoracic dextroscoliosis 6 degrees No thoracic fracture or arthritic change.
--- NOTE | 2025-06-23 16:37 | XR_ITS ---
Examination: Lumbar spine 3 views Technique: AP lateral coned lateral lower lumbar spine 3 views Date and time: June 23, 2025 1730 hrs. Indications: Lower back pain beginning 4 days ago. Findings: Lumbar levoscoliosis 7 degrees Adequate bone density. No lumbar fracture. Low lumbar disc narrowing Impression: Lumbar levoscoliosis 7 degrees No lumbar fracture or arthritic change
[2025-06-23 17:23] LABS: HCG Qualitative,Urine Negative
--- NOTE | 2025-06-23 18:29 | PD.EDRME ---
Rapid Medical Screening Exam RME Arrival date/time: 06/23/25 16:15 Chief Complaint: Back Pain/Injury Time Seen by Provider: 06/23/25 16:24 Vital signs: Vital Signs Temperature 99 F 06/23/25 16:24 Pulse Rate 76 06/23/25 16:24 Respiratory Rate 18 06/23/25 16:24 Blood Pressure 111/73 06/23/25 16:24 Pulse Oximetry (%) 97 06/23/25 16:24 Oxygen Delivery Method Room Air 06/23/25 16:24
--- NOTE | 2025-06-23 18:31 | PD.EDBACK ---
ED Back Injury Pain RME/HPI General Chief Complaint: Back Pain/Injury Stated Complaint: BACK PAIN FOR 5 DAYS, PAIN WITH WALKING Time Seen by Provider: 06/23/25 16:24 Arrival date/time: 06/23/25 16:15 This is a case of 25-year-old female with no medical history came into the emergency room due to mid back and lower back pain for 5 days no injury or trauma patient states that the pain aggravated when she is walking patient denies any numbness weakness tingling sensation or incontinence to urine or stool no abdominal pain noted Limitations: no limitations Related Data Previous Rx's ?Medication ?Instructions ?Recorded hydrocodone 5 mg-acetaminophen 325 1 tab PO BID PRN pain #6 tabs 10/08/23 mg tablet ibuprofen 600 mg tablet 600 mg PO Q6H #30 tabs 10/08/23 bacitracin 500 unit/gram topical 1 applic topical TID #28 grams 01/07/25 ointment baclofen 10 mg tablet 10 mg PO BID PRN muscle spasm #10 06/23/25 tabs hydrocodone 5 mg-acetaminophen 325 1 tab PO Q6H PRN pain #12 tabs 06/23/25 mg tablet Allergies Allergy/AdvReac Type Severity Reaction Status Date / Time No Known Allergies Allergy Verified 06/23/25 16:18 Review of Systems Review of Systems Systems Reviewed: All systems reviewed, normal except as documented Constitutional Constitutional: Reports system reviewed and no additional complaints, except as documented and Reports as per HPI ENT Ears, Nose, Mouth, and Throat: Denies neck pain Cardiovascular Cardiovascular: Reports system reviewed and no additional complaints, except as documented and Reports as per HPI Gastrointestinal Gastrointestinal: Reports as per HPI Genitourinary Genitourinary: Reports system reviewed and no additional complaints, except as documented and Reports as per HPI Musculoskeletal Musculoskeletal: Reports system reviewed and no additional complaints, except as documented, Reports as per HPI, Denies abnormal gait, Reports back pain and Denies neck pain Neurologic Neurologic: Reports system reviewed and no additional complaints, except as documented, Reports as per HPI and Denies abnormal gait Past Medical History Past Medical History CARDIAC: Negative Cardiac Disorders or Congestive Heart Failure RESPIRATORY: Positive Asthma; Negative Chronic Obstructive Pulmonary Disease (COPD) GENITOURINARY: Negative Renal Disease ENDOCRINE: Negative Diabetes Mellitus Type 1 or Diabetes Mellitus Type 2 HEMATOLOGIC: Negative Sickle Cell Disease PSYCHO/SOCIAL: Positive Depression and Self-Mutilation Social History SMOKING STATUS: Current some day smoker ED Exam General Limitations: Present no limitations General appearance: Present alert, in no apparent distress and other (Patient is awake alert oriented not in distress nontoxic looking well-hydrated well-nourished) Head Head exam: Present atraumatic, normocephalic and normal inspection Eye Eye exam: Present normal appearance, PERRL and EOMI ENT ENT exam: Present normal exam, normal oropharynx and mucous membranes moist Neck Neck exam: Present normal inspection, full ROM, trachea midline and other (Negative for meningeal sign); Absent tenderness, meningismus, lymphadenopathy or thyromegaly Chest Chest inspection: Present normal inspection and symmetric chest wall rise; Absent tenderness Respiratory Respiratory exam: Present normal lung sounds bilaterally; Absent respiratory distress, wheezes, stridor, accessory muscle use or prolonged expiratory phase Cardiovascular Cardiovascular exam: Present regular rate, normal rhythm and normal heart sounds; Absent bradycardia, tachycardia, irregular rhythm, systolic murmur or diastolic murmur Abdominal Exam Abdominal exam: Present soft and normal bowel sounds; Absent distention, tenderness, guarding, rebound, rigidity, diminished bowel sounds, hyperactive bowel sounds, hypoactive bowel sounds or organomegaly Extremities Exam Extremities exam: Present normal inspection and full ROM Back Exam Back exam: Present normal inspection, full ROM and tenderness (Mild tenderness on thoracic area and lumbar area no crepitation no deformity no redness no swelling no cellulitis no paraspinal no paravertebral tenderness mild muscle spasm ROM intact neurovascular in); Absent CVA tenderness (R), CVA tenderness (L), muscle spasm, paraspinal tenderness, vertebral tenderness, sciatic notch tenderness (R), sciatic notch tenderness (L), straight leg raise (R) or straight leg raise (L) Neurological Exam Neurological exam: Present alert, oriented X3, CN II-XII intact, normal gait and reflexes normal; Absent motor sensory deficit Psychiatric Psychiatric exam: Present normal affect and normal mood Skin Skin exam: Present warm, dry, intact and normal color Course Quality Measures none Orders Category Date Time Status XR lumbar spine 2-3V Stat Exams 06/23/25 16:37 Completed XR thoracic spine 3V Stat Exams 06/23/25 16:37 Completed HCG Qualitative,Urine Stat Lab 06/23/25 16:50 Completed Dexamethasone Inj [Decadron Inj] Med 06/23/25 18:27 Discontinued 10 mg IM X1 ONE HYDROcodone*/APAP 5/325 [[place] 5/325] Med 06/23/25 18:27 Discontinued 1 tab PO X1 ONE Ketorolac Inj [Toradol Inj] Med 06/23/25 18:27 Discontinued 30 mg IM X1 ONE Vital Signs Vital signs: Vital Signs Temperature 99 F 06/23/25 16:24 Pulse Rate 76 06/23/25 16:24 Respiratory Rate 18 06/23/25 16:24 Blood Pressure 111/73 06/23/25 16:24 Pulse Oximetry (%) 97 06/23/25 16:24 Oxygen Delivery Method Room Air 06/23/25 16:24 Oxygen saturation is 97% in room air Back Pain / Injury MDM Narrative MDM Narrative:: This is a case of 25-year-old female with no medical history came into the emergency room due to mid back and lower back pain for 5 days no injury or trauma patient states that the pain aggravated when she is walking patient denies any numbness weakness tingling sensation or incontinence to urine or stool no abdominal pain noted physical examination patient is awake alert oriented not in distress nontoxic looking well-hydrated well-nourished abdominal exam is benign nonsurgical no guarding no rebound no rigidity no tenderness examination of the back noted to have mild to moderate tenderness on the thoracic area and lumbar area no crepitation no deformity no redness no swelling no paraspinal no paravertebral tenderness leg raise exam is normal no CVA tenderness steady gait ROM is intact neurovascular intact the rest of the physical examination neurological exam is normal and unremarkable no signs and symptoms of cauda equina x-ray of the thoracic and lumbar noted a thoracic dextroscoliosis and lumbar levoscoliosis test is negative at this point patient will be treated as back muscle spasm and and scoliosis patient was given Toradol [place] and dexamethasone patient will follow-up with PCP to be referred to neurosurgeon for further evaluation and treatment of thoracic dextroscoliosis and lumbar school level scoliosis for possible MRI to rule out herniated disc and pain management doctor for pain control after giving medication patient condition improved and resolve the pain patient was prescribed with [place] and baclofen she was advised not to take the medication at the same time ice pack and warm compress as needed for pain no heavy lifting no pulling no pushing is advised patient was advised for any worsening symptoms return precaution in the ER was advised Patient was discharged with comfortable condition walking with stable gait. Patient verbalized no further complains explained diagnosis and answered patient question. Patient is comfortable with the proposed management plan including the need to follow up with his/her primary care physician and any specialist if applicable Discussed patient for any urgent condition or worsening sx, He/She needed to go to emergency room immediately or call 911. Patient acknowledge the responsibility to follow up as instructed and to monitor her/his symptoms. For any persistence of the symptoms for more than 3-5 days return precaution advised. Discussed the result of the test and was given printed discharge instruction Patient data External records reviewed:: [facility] previous records Clinical information provided by:: patient Social determinants that could affect healthcare access:: none Patient has the following chronic illnesses:: None How is presenting disease/condition affected by chronic disease/condition?: no chronic disease Evaluation data The following diagnostics were reviewed and interpreted by me:: lab results and radiology exam(s) Lab and/or radiology exams considered but not ordered:: Reviewed Interpretation Summary: Reviewed Medications / Prescriptions Medications or Prescriptions considered but not ordered:: Given Medication administrations:: Medication Administration History Discontinued Medications Hydrocodone Bitart/Acetaminophen (Hydrocodone/Apap 5/325 Tablet) 1 tab PO X1 ONE Stop: 06/23/25 18:28 Dexamethasone Sodium Phosphate (Dexamethasone Sod Phos Inj 10 Mg/Ml Vial) 10 mg IM X1 ONE Stop: 06/23/25 18:28 Ketorolac Tromethamine (Ketorolac Inj 60 Mg/2 Ml Vial) 30 mg IM X1 ONE Stop: 06/23/25 18:28 Given Consultations Consultation(s) initiated? (list below): No Diagnosis Differential diagnosis back pain/injury: lumbar radiculopathy, sciatica, strain of lumbar region and thoracic back pain Most likely diagnosis given after review of the tests above:: Scoliosis back muscle spasm Admission Indicated Admission indicated?: not indicated Explain why admission is indicated or not indicated:: Not indicated Admission Request Was there a request for admission?: No Admission Attestation Admission request attestation: Not indicated Disposition Plan Disposition Plan: Discharge Discharge Attestation Discharge Attestation: The patient and all family members were given an opportunity to ask questions and understood the discharge instructions. Discharge instructions specifically effects, indications for sooner follow up or return to the emergency department, and the expected course of current diagnosis. Patient condition: Stable Discharge Plan Plan Patient Disposition: HOME (Self Care) Prescriptions/Referrals Prescriptions/Med Rec: New hydrocodone-acetaminophen 5-325 mg tablet 1 tab PO Q6H MDD max 4 tabs per day PRN (Reason: pain) Qty: 12 0RF baclofen 10 mg tablet 10 mg PO BID PRN (Reason: muscle spasm) Qty: 10 0RF No Action hydrocodone-acetaminophen 5-325 mg tablet 1 tab PO BID MDD 10 PRN (Reason: pain) Qty: 6 0RF ibuprofen 600 mg tablet 600 mg PO Q6H Qty: 30 0RF bacitracin 500 unit/gram ointment 1 applic topical TID Qty: 28 0RF Referrals: Jd Simms MD [Primary Care Provider, Family Practice] - In 1 week Problem List Clinical Impression: Back muscle spasm, Dextroscoliosis of thoracic spine, Levoscoliosis of lumbar spine Patient/Caregiver Discharge Instructions Education Materials: Understanding Scoliosis, ED Back Spasm, No Trauma Additional Instructions: Follow-up with your primary care physician in 2 days for reevaluation and to be referred to neurosurgeon for further evaluation and treatment of thoracic dextroscoliosis and lumbar levoscoliosis for possible MRI to rule out herniated disc and pain management doctor for pain control worsening symptoms or any emergent concerns such as numbness weakness tingling sensation incontinence to urine or stool call 911 or go to the emergency room take your medication as directed ice pack and warm compress as needed for pain Print Language: Emirati Stand Alone Forms: Dena Award Info., Patient Portal Info Letter PA/PRESERVATIONIST Supervising Physician PA/PRESERVATIONIST Supervising Physician: dr carvalho
[2025-06-23] MEDS: DEXAMETHASONE SOD PHOS INJ 10 MG/ML VIAL IM (19:02)
[2025-06-23] MEDS: KETOROLAC INJ 60 MG/2 ML VIAL 30 MG IM (19:02)
[2025-06-23] MEDS: HYDROcodone/APAP 5/325 TABLET 1 TAB PO (19:03)
== END 2025-06-23 19:11 | disposition home or self-care (01) ==
PROVIDERS: Nurse Practitioner Family; Emergency Provider Emergency Medicine; PCP Family Medicine
DX: M41.9 Scoliosis, unspecified (principal); M62.830 Muscle spasm of back
CPT/HCPCS: 72072; 72100; 81025; 96372; 99283; J1100; J1885; A9270